=== PATIENT | female | born 1960 | race Caucasian/White ===

== ENCOUNTER → 2017-11-02 11:46 | Outpatient (CLI) | payer OTHER, SELFPAY ==
[2017-11-02 14:10] LABS: Erythrocyte Sedimentation Rate 14 mm/hr (0-30)
[2017-11-02 14:16] LABS: Absolute Neutrophil Count 4.7 X10^3/uL (2.0-7.7); Basophil# 0.03 X10^3/uL; Basophil% 0.4 % (0-1); Eosinophil# 0.11 X10^3/uL; Eosinophils% 1.5 % (0-5); Hematocrit 41.1 % (37-47); Hemoglobin 13.6 g/dl (12.0-15.0); Lymphocyte % 29.5 % (19-41); Mean Corp Hgb Conc 33.1 g/gl (32-36); Mean Corpuscular Hgb 28.2 pg (27.0-32.0); Mean Corpuscular Volume 85.3 fL (81-99); Mean Platelet Vol. 8.9 fl (6.2-12.0); Monocyte# 0.44 X10^3/uL; Monocyte% 5.9 % (0-10); Neutrophil # 4.67 X10^3/uL (2.7-7.7); Neutrophil % 62.6 % (47-70); Platelet Count 320 K/mm3 (150-450); RBC Distribution Width CV 13.3 % (11.6-14.6); RBC Distribution Width SD 40.8 fl (35.1-43.9); Red Blood Count 4.82 M/mm3 (4.2-5.4); White Blood Count 7.5 K/mm3 (4.4-11.0)
[2017-11-02 14:26] LABS: POSITIVE COUNT NO; POSITIVE DIFFERENTIAL NO; POSITIVE MORPHOLOGY NO
[2017-11-02 14:31] LABS: Vitamin B12 616 pg/mL (211-911); Vitamin D,25 Hydroxy 23.7 ng/mL (29.95-100.01)
[2017-11-02 15:08] LABS: ALB/GLOB Ratio 0.9 RATIO (0.9-2.4); AST(SGOT) 21 U/L (15-37); Alanine Aminotransfer ALT/SGPT 34 U/L (13-56); Albumin, Serum 3.8 g/dL (3.2-5.0); Alkaline Phosphatase 66 U/L (45-117); Anion Gap 11 (5-15); BUN 17 mg/dL (7-18); BUN/Creat Ratio 25.6 RATIO (10-20); CRP 7.33 mg/L (0.0-3.0); Calcium,Total 8.9 mg/dL (8.5-10.1); Chloride 102 mmol/L (98-107); Creatinine, Serum 0.66 mg/dL (0.55-1.02); EST Glomerular Filtration Rate 97 mL/min (>60); Est Glom Filt Rate - Afr Amer 118 mL/min (>60); Globulin 4.3 g/dL (2.2-4.2); Glucose 85 mg/dL (74-106); Potassium 4.1 mmol/L (3.5-5.1); Protein, Total 8.1 g/dL (6.4-8.2); Sodium Level 139 mmol/L (136-145); Thyroid Stim Hormone (TSH) 1.99 uIU/mL (0.358-3.74)
[2017-11-05 14:03] LABS: ANTINUCLEAR ANTIBODIES DIRECT Negative (Negative)
== END ==
PROVIDERS: Family Provider Internal Medicine; PCP Internal Medicine; Visit Provider Internal Medicine
DX: R53.83 Other fatigue (principal)
CPT/HCPCS: 36415; 80053; 82306; 82607; 82746; 84443; 85025; 85652; 86038; 86140; 87086; 87088

== ENCOUNTER → 2017-11-05 12:42 | Outpatient (CLI) | payer OTHER, SELFPAY ==
--- NOTE | 2017-11-05 12:55 | BI_ITS ---
MAMMOGRAPHY - BILATERAL SCREENING 3-D RODNEY SYNTHESIS REASON FOR EXAM: Female, 57 years old. Bilateral Screening 3-D tomosynthesis PERTINENT HISTORY: No significant family history. TECHNIQUE: 2-D mammograms and 3-D Rodney synthesis of the breast (s) were performed. CAD was performed. COMPARISON: October 19, 2016. FINDINGS: The breast composition is composed of scattered fibroglandular density. No dense spiculated masses or suspicious microcalcifications are identified. No architectural distortion is identified. There is no skin thickening or retraction. There has been no significant change since the prior study. BI/SCREENING MAMM (CAD), BILAT IMPRESSION: No mammographic signs of malignancy. Routine yearly mammograms recommended. ASSESSMENT CATEGORY: BIRADS Category 1: Negative. A letter regarding these results will be sent to the patient by the facility within 30 days. FOLLOW UP RECOMMENDATION: Yearly follow up mammogram recommended. (A) Approximately 10% of breast cancers are not detected by mammography. A normal mammogram should not delay biopsy of a clinically suspicious abnormality. Electronically Signed: Eric Dsouza MD at 15:48 EDT , Service support ,
--- NOTE | 2017-11-05 13:13 | US_ITS ---
STUDY: ULTRASOUND OF THE FEMALE PELVIS - COMPLETE REASON FOR EXAM: Female, 57 years old. Right lower quadrant pain LMP: Postmenopausal TECHNIQUE: Transabdominal and Transvaginal TECHNICAL QUALITY: Adequate. COMPARISON: December 20, 2016 CT scan pelvis FINDINGS: The uterus is retroverted and is in a midline position. The uterus measures 5.3 x 4.2 x 3.2 cm. Normal uterine cervix. The endometrium measures 1.3 mm, on sagittal view at the fundus however allowing for technique the transverse view shows that an echogenicity measuring 0.5 x 0.8 cm seen on image #23 of the transverse views. In the left and midline lower aspect of the uterus there is a well-circumscribed 1.4 x 1.2 cm fibroid which is well seen on the prior study CT scan. I.U.D. - The patient does not have an I.U.D. The right ovary is not visualized. The left ovary is visualized. The left ovary measures 1.2 x 1.1 x 1.0 cm. There is no left ovarian cyst or ovarian mass. There is no visualized left adnexal mass or complex lesion. There is normal arterial and normal venous vascularity. There is no fluid in the cul-de-sac. The pre void volume of the bladder was 355 ml. US/Pelvic (Non ) IMPRESSION: Status post left oophorectomy. Question hyperechoic mass within the uterine lumen in the endometrium measuring 0.5 x 0.8 cm. This may represent an possible fibroid, endometrial polyp or focal endometrial thickening. Small left of midline exophytic fibroid. Recommend close interval follow-up and/or consideration for MRI for further evaluation. Electronically Signed: Dorothy Harvey MD at 1:28 EDT Tel , Service support ,
--- NOTE | 2017-11-05 13:25 | US_ITS ---
STUDY: ULTRASOUND OF THE FEMALE PELVIS - COMPLETE REASON FOR EXAM: Female, 57 years old. Right lower quadrant pain LMP: Postmenopausal TECHNIQUE: Transabdominal and Transvaginal TECHNICAL QUALITY: Adequate. COMPARISON: December 20, 2016 CT scan pelvis FINDINGS: The uterus is retroverted and is in a midline position. The uterus measures 5.3 x 4.2 x 3.2 cm. Normal uterine cervix. The endometrium measures 1.3 mm, on sagittal view at the fundus however allowing for technique the transverse view shows that an echogenicity measuring 0.5 x 0.8 cm seen on image #23 of the transverse views. In the left and midline lower aspect of the uterus there is a well-circumscribed 1.4 x 1.2 cm fibroid which is well seen on the prior study CT scan. I.U.D. - The patient does not have an I.U.D. The right ovary is not visualized. The left ovary is visualized. The left ovary measures 1.2 x 1.1 x 1.0 cm. There is no left ovarian cyst or ovarian mass. There is no visualized left adnexal mass or complex lesion. There is normal arterial and normal venous vascularity. There is no fluid in the cul-de-sac. The pre void volume of the bladder was 355 ml. US/Transvaginal Non- IMPRESSION: Status post left oophorectomy. Question hyperechoic mass within the uterine lumen in the endometrium measuring 0.5 x 0.8 cm. This may represent an possible fibroid, endometrial polyp or focal endometrial thickening. Small left of midline exophytic fibroid. Recommend close interval follow-up and/or consideration for MRI for further evaluation. Electronically Signed: Dorothy Harvey MD at 1:28 EDT Tel , Service support ,
== END ==
PROVIDERS: Family Provider Internal Medicine; PCP Internal Medicine; Visit Provider Obstetrics & Gynecology
DX: Z12.31 Encounter for screening mammogram for malignant neoplasm of breast (principal); R10.31 Right lower quadrant pain
CPT/HCPCS: 76830; 76856; 77063; 77067; 93976

== ENCOUNTER → 2017-11-20 18:37 | Outpatient (CLI) | payer OTHER, SELFPAY ==
[2017-11-24 11:36] LABS: HPV Reflexed? NOT INDICATED
== END ==
PROVIDERS: Family Provider Internal Medicine; PCP Internal Medicine; Visit Provider Obstetrics & Gynecology
DX: Z12.4 Encounter for screening for malignant neoplasm of cervix (principal)
CPT/HCPCS: 88175; G0145

== ENCOUNTER → 2017-11-21 11:03 | Outpatient (CLI) | payer OTHER, SELFPAY ==
--- NOTE | 2017-11-21 11:06 | MRI_ITS ---
STUDY: MR PELVIS WITH T WITHOUT CONTRAST REASON FOR EXAM: Female, 57 years old. Right lower quadrant abdominal pain for 3 years. Patient has uterine fibroids. TECHNIQUE: Standardized fat and water weighted pulse sequences were obtained in all 3 orthogonal planes, pre-and post contrast administration. 10 ml of Gadavist contrast material was administered intravenously for the contrast portion of the examination. Multiple images are limited by patient motion. COMPARISON: Pelvic ultrasound dated November 05, 2017. FINDINGS: Normal urinary bladder. Normal visualized small intestine. Appears to be abnormal thickening of the baez of the colon which measure up to 5.6 mm. The uterus is deviated towards the left. There is a focus of abnormally decreased T2 signal within the left lateral uterine myometrium measuring approximately 6.5 mm. This probably represents a small leiomyoma. There are multiple areas of abnormal T2 hyperintensity within the subserosal uterine myometrium that may represent small leiomyomas. These measure less than a centimeter in size. There is a nabothian cyst. The junctional zone measures approximately 6.5 mm in thickness. Neither ovary is visualized. There is no pelvic fluid. There is no pelvic mass lesion or lymphadenopathy. Normal visualized pelvic arteries. There are degenerative changes at L5-S1. Normal abdominal wall. MRI/Pelvis W/WO Contrast IMPRESSION: 1. Atrophic uterus with multiple small nodules possibly representing leiomyomas. 2. Nonvisualization of either ovary. 3. Questionable thickening of the baez of sigmoid colon possibly related to nondistention and/or chronic inflammation. Electronically Signed: Candice Montoya MD at 8:54 EDT , Service support ,
== END ==
PROVIDERS: Family Provider Internal Medicine; PCP Internal Medicine; Visit Provider Internal Medicine
DX: N85.8 Other specified noninflammatory disorders of uterus (principal)
CPT/HCPCS: 72197; A9585

== ENCOUNTER → 2019-05-14 | Outpatient (CLI) | payer OTHER, SELFPAY ==
[2018-01-23 07:40] VITALS: BMI 34.7
[2019-05-14 17:49] LABS: Absolute Lymphocyte Count 2.31 X10^3/uL (0.83-4.51); Absolute Neutrophil Count 3.2 X10^3/uL (2.0-7.7); Basophil# 0.04 X10^3/uL; Basophil% 0.7 % (0-1); Eosinophil# 0.05 X10^3/uL; Eosinophils% 0.8 % (0-5); Hematocrit 41.3 % (37-47); Hemoglobin 13.7 g/dL (12.0-15.0); Lymphocyte # 2.31 X10^3/ul (4.0); Lymphocyte % 37.7 % (19-41); Mean Corp Hgb Conc 33.2 g/dL (32-36); Mean Corpuscular Hgb 28.8 pg (27.0-32.0); Mean Corpuscular Volume 86.9 fL (81-99); Monocyte# 0.52 X10^3/uL; Monocyte% 8.5 % (0-10); NRBC Flagged by Analyzer 0 % (0-5); Neutrophil # 3.18 X10^3/uL (2.7-7.7); Platelet Count 244 K/mm3 (150-450); RBC Distribution Width CV 12.6 % (11.6-14.6); RBC Distribution Width SD 40.1 fl (35.1-43.9); Red Blood Count 4.75 M/mm3 (4.2-5.4); White Blood Count 6.1 K/mm3 (4.4-11.0)
[2019-05-14 18:10] LABS: AST(SGOT) 32 U/L (15-37); Alanine Aminotransfer ALT/SGPT 59 U/L (13-56); Alkaline Phosphatase 54 U/L (45-117); Anion Gap 8 (5-15); BUN 9 mg/dL (7-18); BUN/Creat Ratio 13.8 RATIO (10-20); Calcium,Total 9.1 mg/dL (8.5-10.1); Chloride 105 mmol/L (98-107); Creatinine, Serum 0.65 mg/dL (0.55-1.02); EST Glomerular Filtration Rate 99 mL/min (>60); Est Glom Filt Rate - Afr Amer 119 mL/min (>60); Globulin 3.9 g/dL (2.2-4.2); Glucose 86 mg/dL (74-106); Potassium 3.9 mmol/L (3.5-5.1); Protein, Total 7.9 g/dL (6.4-8.2); Sodium Level 139 mmol/L (136-145)
[2019-05-16 12:30] LABS: Thyroid Peroxidase AB 6 IU/mL (0-34)
== END | disposition home or self-care (01) ==
PROVIDERS: Family Provider Internal Medicine; PCP Internal Medicine; Referring Provider Physician Assistant; Visit Provider Physician Assistant
DX: R20.8 Other disturbances of skin sensation (principal); L82.1 Other seborrheic keratosis
CPT/HCPCS: 36415; 80053; 85025; 86038; 86376

== ENCOUNTER → 2020-03-18 | Outpatient (CLI) | payer OTHER, SELFPAY ==
[2018-01-23 07:40] VITALS: BMI 34.7
[2020-03-24 19:09] LABS: HPV APTIMA, High Risk Negative (Negative)
== END | disposition home or self-care (01) ==
LOC: LABSPEC 11:57
PROVIDERS: PCP Internal Medicine; Visit Provider Obstetrics & Gynecology
DX: Z12.4 Encounter for screening for malignant neoplasm of cervix (principal)
CPT/HCPCS: 87624; 88175; G0145

== ENCOUNTER → 2020-04-02 | Outpatient (CLI) | payer OTHER, SELFPAY ==
--- NOTE | 2020-04-02 15:20 | BI_ITS ---
MAMMOGRAPHY - BILATERAL SCREENING REASON FOR EXAM: Female, 59 years old. Routine annual screening examination. PERTINENT HISTORY: Non-contributory. History of remote right excisional breast biopsy. TECHNIQUE: Digital bilateral breast rodney (3D mammographic acquisition) in the CC and MLO projections. 2-D mediolateral oblique (MLO) and craniocaudad (CC) views of both breasts were obtained. CAD: Full Field Digital Mammography with Computer Added Detection was performed. COMPARISON: Comparison is made with prior study dated 11/05/2017 and 10/19/2016. FINDINGS: Breast Composition: There are scattered areas of fibroglandular density. There are no dominant masses or suspicious calcifications. Stable benign-appearing bilateral axillary lymph nodes. No other significant abnormalities are identified. There has been no significant change since the prior study. BI/SCREEN MAMM (CAD) W/RODNEY BILAT IMPRESSION: Stable bilateral screening mammogram. Yearly follow-up mammogram recommended. (A) ASSESSMENT CATEGORY: BIRADS Category 2: Benign. A letter regarding these results will be sent to the patient by the facility within 30 days. Approximately 10% of breast cancers are not detected by mammography. A normal mammogram should not delay biopsy of a clinically suspicious abnormality. [id number] Electronically Signed: Jarrett Bey, at 8:24 EDT , Service support ,
== END | disposition home or self-care (01) ==
LOC: OPBI 15:10
PROVIDERS: PCP Internal Medicine; Referring Provider Obstetrics & Gynecology; Visit Provider Obstetrics & Gynecology
DX: Z12.31 Encounter for screening mammogram for malignant neoplasm of breast (principal)
CPT/HCPCS: 77063; 77067

== ENCOUNTER → 2020-04-14 | Outpatient (CLI) | payer OTHER, SELFPAY ==
[2020-04-14 09:40] LABS: Bacteria 0 SEEN /hpf (None Seen); Mucous, Urine 0 SEEN /hpf (<or=2+); Red Blood Cells-Urine 0 SEEN /hpf (0-5); Squamous Epithelial Cells - UA 0 SEEN /hpf (5-10); White Blood Cells 0 SEEN /hpf (0-5)
[2020-04-14 09:52] LABS: Color, Urine Yellow (Yellow); Glucose, Dipstick Normal (Normal); Ketone-Dipstick Negative (Negative); Leukocyte Esterase-Dipstick Negative /ul (Negative); Nitrite-Dipstick Negative (Negative); Occult Blood-Urine Negative /ul (Negative); Protein-Dipstick Negative (Negative); Urine Bilirubin Dipstick Negative (Negative); Urine Clarity Clear (Clear); Urine Urobilinogen Normal (Normal)
--- NOTE | 2020-04-14 09:57 | CT_ITS ---
STUDY: CT ABDOMEN AND PELVIS WITHOUT CONTRAST REASON FOR EXAM: Female, 59 years old. rlq pain x years. hx of hysterectomy RADIATION DOSAGE (If Supplied By Facility): CTDIvol = ( 18.61 ) mGy, DLP = ( 906.55 ) mGycm TECHNIQUE: Transaxial images were obtained from the dome of the diaphragm to the symphysis pubis without oral contrast, and without intravenous contrast. Sagittal and coronal images were reconstructed. Individualized dose optimization techniques were used for this CT. COMPARISON: Comparison is made with prior study dated 12/20/2016. FINDINGS: The visualized lung bases are unremarkable. The visualized portions of the heart are within normal limits. Normal liver. Normal gallbladder and extrahepatic biliary system. There are benign calcified granulomata of the spleen. Normal pancreas. Normal bilateral adrenal glands. Normal right kidney. Normal left kidney. Normal visualized stomach. Normal small intestine. Normal colon. The appendix is visualized and appears normal. There is scattered atherosclerotic calcification of the abdominal aorta, without a demonstrated aneurysm. 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 Normal inferior vena cava. Normal retroperitoneum. Normal urinary bladder. There is absence of the uterus consistent with a prior hysterectomy. Calcified phleboliths are seen in the pelvis. Normal abdominal wall. There are degenerative changes of the visualized lumbar spine. CT/Abdomen/Pelvis without Cont IMPRESSION: No acute amount is seen. 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 Electronically Signed: Jarrett Bey, at 10:46 EDT , Service support ,
[2020-04-14 09:58] LABS: Erythrocyte Sedimentation Rate 27 mm/hr (0-30)
[2020-04-14 10:01] LABS: Absolute Lymphocyte Count 1.56 X10^3/uL (0.83-4.51); Absolute Neutrophil Count 2.8 X10^3/uL (2.0-7.7); Basophil# 0.05 X10^3/uL; Eosinophil# 0.06 X10^3/uL; Eosinophils% 1.2 % (0-5); Hematocrit 39.9 % (37-47); Hemoglobin 13.3 g/dL (12.0-15.0); Lymphocyte # 1.56 X10^3/ul (4.0); Lymphocyte % 31.1 % (19-41); Mean Corp Hgb Conc 33.3 g/dL (32-36); Mean Corpuscular Hgb 28.6 pg (27.0-32.0); Mean Corpuscular Volume 85.8 fL (81-99); Mean Platelet Vol. 8.5 fl (6.2-12.0); Monocyte# 0.49 X10^3/uL; Monocyte% 9.8 % (0-10); NRBC Flagged by Analyzer 0 % (0-5); Neutrophil # 2.84 X10^3/uL (2.7-7.7); Neutrophil % 56.7 % (47-70); Platelet Count 236 K/mm3 (150-450); RBC Distribution Width CV 12.8 % (11.6-14.6); RBC Distribution Width SD 39.8 fl (35.1-43.9); Red Blood Count 4.65 M/mm3 (4.2-5.4)
[2020-04-14 10:11] LABS: Anion Gap 5 (5-15); BUN 12 mg/dL (7-18); BUN/Creat Ratio 16.8 RATIO (10-20); CRP < 2.90 mg/L (0.0-3.0); Calcium,Total 9.3 mg/dL (8.5-10.1); Chloride 104 mmol/L (98-107); Cholesterol 169 mg/dL (200); Creatinine, Serum 0.71 mg/dL (0.55-1.02); EST Glomerular Filtration Rate 89 mL/min (>60); Est Glom Filt Rate - Afr Amer 107 mL/min (>60); Glucose 109 mg/dL (74-106); High Density Lipoprotein 51 mg/dL; Potassium 4.2 mmol/L (3.5-5.1); Sodium Level 136 mmol/L (136-145); Triglycerides 120 mg/dL; Very Low Density Lipoprotein 24 mg/dL (5-40)
[2020-04-14 10:15] LABS: Vitamin D,25 Hydroxy 35.4 ng/mL
[2020-04-14 10:26] LABS: Microalbumin,Random Urine < 5.0 mg/L (NO RANGE EST.)
== END | disposition home or self-care (01) ==
LOC: CT 09:32
PROVIDERS: PCP Internal Medicine; Referring Provider Internal Medicine; Visit Provider Internal Medicine
DX: E55.9 Vitamin D deficiency, unspecified (principal); I10 Essential (primary) hypertension; R10.11 Right upper quadrant pain; R10.32 Left lower quadrant pain
CPT/HCPCS: 36415; 74176; 80048; 80061; 81001; 82043; 82306; 82570; 85025; 85652; 86140

== ENCOUNTER → 2020-04-23 | Outpatient (CLI) | payer OTHER, SELFPAY ==
--- NOTE | 2020-04-23 10:59 | NM_ITS ---
CLINICAL: 59-year-old female with reported history of right upper quadrant abdominal pain. RADIONUCLIDE HEPATOBILIARY SCINTIGRAPHY COMPARISON: Previous CCK hepatobiliary scintigraphy study dated 11/20/2016 FINDINGS: Following the intravenous administration of 5.6 mCi of 99m Tc Mebrofenin, hepatobiliary images reveal: 1. Relatively prompt and homogeneous radiopharmaceutical concentration is noted by a normal sized liver. No parenchymal defects are identified. 2. Gallbladder activity is identified at 15 minutes post radiopharmaceutical administration. 3. Small intestinal tract is observed at 30 minutes following tracer injection. 4. Washout of the radiopharmaceutical by the hepatic parenchyma appears qualitatively normal. Cholecystokinin (0.02 ug/kg) was administered intravenously over a 30-minute period. The post CCK gallbladder ejection fraction calculated at 20 minutes following Cholecystokinin administration was noted to be 91.0 % (normal greater than 35%) compared to 92% defined on the examination dated 11/21/2019. During 30 minutes of post CCK imaging, there is no scintigraphic evidence of reflux of the radiotracer into the common hepatic duct or refilling of the gallbladder. 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 NM/Hepatobilliary Img w/Pharm Int IMPRESSION: 1. A gallbladder ejection fraction calculated to be greater than 35% following the administration of Cholecystokinin makes the probability of functional hepatobiliary disease (gallbladder and/or sphincter of Oddi dyskinesia) and/or organic hepatobiliary disease (chronic acalculous cholecystitis and/or cystic duct syndrome) to be low. (Lenora Sharp et al, Journal of Nuclear Medicine 32:1695, 1990). 2. There is scintigraphic evidence of post CCK duodenal-gastric reflux. (Foreign et al, Nucl Med Jodi Rosa Press pg. 35, 1980). Electronically Signed: Arden Trejo DO at 22:38 EDT Tel , Service support ,
== END | disposition home or self-care (01) ==
LOC: NM 10:57
PROVIDERS: PCP Internal Medicine; Referring Provider Internal Medicine; Visit Provider Internal Medicine
DX: R10.11 Right upper quadrant pain (principal)
CPT/HCPCS: 78227; A9537; J2805

== ENCOUNTER → 2020-07-08 | Outpatient (CLI) | payer OTHER, SELFPAY | END | disposition home or self-care (01) | LOC: LABSPEC 10:11 | PROVIDERS: PCP Internal Medicine; Referring Provider Internal Medicine Gastroenterology; Visit Provider Internal Medicine Gastroenterology | DX: Z11.59 Encounter for screening for other viral diseases (principal) | CPT/HCPCS: 87635; C9803; U0003 ==

== ENCOUNTER → 2020-07-14 15:52 | Outpatient (CLI) | payer OTHER, SELFPAY ==
[2018-01-23 07:40] VITALS: BMI 34.7
[2020-07-14 18:14] LABS: AST(SGOT) 31 U/L (15-37); Alanine Aminotransfer ALT/SGPT 66 U/L (13-56); Albumin, Serum 3.9 g/dL (3.2-5.0); Alkaline Phosphatase 63 U/L (45-117); Bilirubin, Direct 0.08 mg/dL (0.00-0.30); Globulin 3.9 g/dL (2.2-4.2); Protein, Total 7.8 g/dL (6.4-8.2)
== END ==
PROVIDERS: PCP Internal Medicine; Referring Provider Internal Medicine; Visit Provider Internal Medicine
DX: R14.0 Abdominal distension (gaseous) (principal)
CPT/HCPCS: 36415; 80076

== ENCOUNTER → 2021-04-19 16:00 | Outpatient (CLI) | payer OTHER, SELFPAY ==
[2021-04-22 21:12] LABS: HPV APTIMA, High Risk Negative (Negative)
== END ==
PROVIDERS: PCP Internal Medicine; Visit Provider Obstetrics & Gynecology
DX: Z12.4 Encounter for screening for malignant neoplasm of cervix (principal)
CPT/HCPCS: 87624; 88175; G0145

== ENCOUNTER → 2021-04-20 15:21 | Outpatient (CLI) | payer OTHER, SELFPAY ==
--- NOTE | 2021-04-20 15:23 | BI_ITS ---
MAMMOGRAPHY - BILATERAL SCREENING 3-D TOMOSYNTHESIS REASON FOR EXAM: Female, 60 years old. SCREENING PERTINENT HISTORY: No significant family history. TECHNIQUE: 2-D mammograms and 3-D Tomosynthesis of the breast (s) were performed. CAD was performed. COMPARISON: 04/02/2020 FINDINGS: The breast composition is composed of scattered fibroglandular density. Scattered benign calcifications are seen. No dense spiculated masses or suspicious microcalcifications are identified. No architectural distortion is identified. There is no skin thickening or retraction. There has been no significant change since the prior study. BI/SCRN MAMM (CAD)W/RODNEY BILAT IMPRESSION: No mammographic signs of malignancy. Routine yearly mammograms recommended. ASSESSMENT CATEGORY: BIRADS Category 1: Negative. A letter regarding these results will be sent to the patient by the facility within 30 days. FOLLOW UP RECOMMENDATION: Yearly follow up mammogram recommended. (A) Approximately 10% of breast cancers are not detected by mammography. A normal mammogram should not delay biopsy of a clinically suspicious abnormality. Electronically Signed: Arden Joe MD at 17:49 EDT Tel , Service support ,
== END ==
PROVIDERS: PCP Internal Medicine; Referring Provider Obstetrics & Gynecology; Visit Provider Obstetrics & Gynecology
DX: Z12.31 Encounter for screening mammogram for malignant neoplasm of breast (principal)
CPT/HCPCS: 77063; 77067

== ENCOUNTER 2021-04-25 11:37 | Emergency (ER) | payer OTHER, SELFPAY ==
[2021-04-25 11:38] VITALS: BP 164/98; PULSE 94; RESP 18; TEMP 36.6; O2SAT 96; BMI 35.6
--- NOTE | 2021-04-25 12:03 | CT_ITS ---
STUDY: CT ABDOMEN AND PELVIS WITH CONTRAST REASON FOR EXAM: Female, 60 years old. Pain -- IV PO Contrast. 3 day history of abdominal pain. RADIATION DOSAGE (If Supplied By Facility): CTDIvol = ( 14.9 ) mGy, DLP = ( 1119.73 ) mGycm TECHNIQUE: Transaxial images were obtained from the dome of the diaphragm to the symphysis pubis with oral contrast. Oral and amp; IV Gastrografin and amp; 100mL Isovue-370 was administered. Sagittal and coronal images were reconstructed. Individualized dose optimization techniques were used for this CT. COMPARISON: Comparison is made with prior examination of 04/14/2020. FINDINGS: The visualized lung bases are unremarkable. The visualized portions of the heart are within normal limits. There is decreased attenuation of the liver consistent with steatosis. Normal gallbladder and extrahepatic biliary system. Normal spleen. Normal pancreas. Normal bilateral adrenal glands. Normal right kidney. Normal left kidney. Normal visualized stomach. Normal small intestine. There are scattered colonic diverticula consistent with diverticulosis. The appendix is visualized and appears normal. There is diffuse atherosclerotic calcification of the abdominal aorta, without a demonstrated aneurysm. Stable 7.2 mm calcified aneurysm of the intrarenal branch of the right renal artery. Normal inferior vena cava. Normal retroperitoneum. Normal urinary bladder. The patient claims to have prior hysterectomy although there appears to be a uterus with a bulbous fundal portion suggestive of fibroid. Multiple calcified phleboliths. Normal abdominal wall. There are degenerative changes of the visualized lumbar spine. CT/Abdomen/Pelvis WITH Contrast IMPRESSION: Stable examination. Electronically Signed: Jarrett Bey MD at 14:36 EDT , Service support ,
--- NOTE | 2021-04-25 12:04 | EX.ED.DYSGE1 ---
HPI History of Present Illness Chief Complaint: Abd Pain Informant: patient Onset/Context/Timing Onset: Days (3 days) Context: Gradual Onset Current Severity: Mild Maximum Severity: Moderate Narrative Narrative: Patient presents with 3-day history of abdominal pain. She points to the mid abdomen and describing her area of pain. She initially thought she may be UTI so she went to urgent care. Urinalysis there was negative and she was sent to the ER. She denies fever. No vomiting but has had some mild nausea. No diarrhea. PFSH PFSH Medical History BPPV (benign paroxysmal positional vertigo) Chronic back pain Essential (primary) hypertension Fatty liver GERD (gastroesophageal reflux disease) Hemorrhoids IBS (irritable bowel syndrome) Obesity (BMI 30-39.9) Renal artery aneurysm Home Medications lisinopril 20 mg tablet 20 mg PO DAILY #90 tab 01/05/21 [Rx Last Taken Unknown] pantoprazole 40 mg tablet,delayed release 40 mg PO DAILY tab 01/05/21 [History Last Taken Unknown] dicyclomine 20 mg PO BID PRN #14 tab 04/25/21 [Rx Last Taken Unknown] hydrocodone-acetaminophen 1 tab PO Q6H PRN 3 Days #10 tab 04/25/21 [Rx Last Taken Unknown] Allergy/AdvReac Type Severity Reaction Status Date / Time codeine Allergy Rash Verified 04/25/21 11:38 Family History Father CAD (coronary artery disease) Diabetes Hypertension Kidney disease Cancer lung Surgical History H/O arthroscopic knee surgery H/O breast biopsy H/O oophorectomy History of colonoscopy History of endometrial ablation Social History Smoking Status: Never smoker alcohol intake: current substance use type: does not use caffeine: Yes ROS ROS ED Constitutional Constitutional ED: Denies fever(s) Eyes Eyes: Denies change in vision ENT ENT ED: Denies sore throat Cardiovascular Cardiovascular: Denies chest pain Respiratory/Chest Respiratory/Chest: Denies cough or dyspnea Gastrointestinal Gastrointestinal: Reports abdominal pain and nausea; Denies diarrhea or vomiting Genitourinary Genitourinary ED: Denies dysuria or urinary frequency Musculoskeletal Musculoskeletal: Denies back pain Integumentary Denies rash Neurologic Neurologic: Denies headache(s) or weakness Allergic/Immunologic Allergic/Immunologic ED: Denies urticaria EXAM Physical Exam Const Vital Signs: 04/25/21 11:38 04/25/21 14:00 Temperature 97.9 F Temperature Source Temporal Pulse Rate 94 Respiratory Rate 18 16 Blood Pressure 164/98 H Blood Pressure Mean 120 Pulse Ox 96 Oxygen Delivery Method Room Air Positive well nourished and well developed General Appearance ED: well developed Chest Wall inspection of chest normal Resp normal respiratory effort and clear to auscultation bilaterally Cardio regular rate and regular rhythm GI Auscultation: hypoactive bowel sounds Palpation: soft and tender other (Mild diffuse tenderness to palpation. No guarding or rebound.) Extremity normal to inspection Neuro oriented x3 Sensorium / Orientation: alert Psych mental status grossly normal Skin no rashes or lesions noted MDM MDM MDM Narrative Medical decision making narrative: Lab work and CT scan with p.o. and IV contrast obtained. Urinalysis from the urgent care was reviewed and normal. Lab Data Attestation: I reviewed the patient's lab results. Labs: Laboratory Results - last 24 hr 04/25/21 04/25/21 11:56 11:56 WBC 8.6 RBC 4.94 Hgb 14.1 Hct 42.1 MCV 85.2 MCH 28.5 MCHC 33.5 RDW Std Deviation 40.2 RDW Coeff of [place] 13.0 Plt Count 250 MPV 8.9 Immature Gran % (Auto) 0.200 Neut % (Auto) 75.7 H Lymph % (Auto) 16.4 L [place] % (Auto) 6.9 Eos % (Auto) 0.3 Baso % (Auto) 0.5 Absolute Neuts (auto) 6.5 Absolute Lymphs (auto) 1.41 Nucleated RBC % 0 Sodium 136 Potassium 3.9 Chloride 105 Carbon Dioxide 24.0 Anion Gap 7 BUN 9 Creatinine 0.68 Estim Creat Clear Calc 75.97 Est GFR (MDRD) Af Amer 114 Est GFR (MDRD) Non-Af 94 BUN/Creatinine Ratio 13.3 Glucose 113 H Calcium 9.4 Total Bilirubin 0.60 Direct Bilirubin 0.18 AST 29 ALT 62 H Alkaline Phosphatase 63 Total Protein 8.4 H Albumin 3.9 Globulin 4.5 H Lipase 251 Radiography Diagnostic Testing: Clinical Impression(s) from Imaging Studies Abdomen/Pelvis CT 04/25/21 12:03 IMPRESSION: Stable examination. Electronically Signed: Jarrett Bey MD at 14:36 EDT , Service support , Treatment and Re-Evaluation Comments:: Patient's lab work is unremarkable. CT scan is read as normal. She has a stable aneurysm of the right renal artery that is unchanged. Test results discussed with the patient. I did recommend follow-up with her GI doctor, Dr. Duarte. Patient will be given prescriptions for Bentyl as well as a few Flournoy for breakthrough pain. Return instructions provided. Discharge Plan Triage Chief Complaint: Abd Pain ED Provider: Evelyn Baez Dx/Rx/DC Orders Clinical Impression: Abdominal pain Instructions: ED Abdominal Pain Unkn Cause Fem Prescriptions: New dicyclomine 20 mg tablet 20 mg PO BID PRN (Reason: abdominal pain) Qty: 14 RF: 0 hydrocodone-acetaminophen 5-325 mg tablet 1 tab PO Q6H PRN (Reason: pain) 3 Days Qty: 10 RF: 0 No Action pantoprazole 40 mg tablet,delayed release (DR/EC) 40 mg PO DAILY RF: 0 lisinopril 20 mg tablet 20 mg PO DAILY Qty: 90 RF: 5 Primary Care Provider: Lisa Yoder Referrals: Lisa Yoder DO [Primary Care Provider] - Js Duarte MD [NON-STAFF] - As Needed Disposition Disposition: Home, Self Care
[2021-04-25 12:16] LABS: Absolute Lymphocyte Count 1.41 X10^3/uL (0.83-4.51); Absolute Neutrophil Count 6.5 X10^3/uL (2.0-7.7); Basophil# 0.04 X10^3/uL; Basophil% 0.5 % (0-1); Eosinophil# 0.03 X10^3/uL; Eosinophils% 0.3 % (0-5); Hematocrit 42.1 % (37-47); Hemoglobin 14.1 g/dL (12.0-15.0); Lymphocyte # 1.41 X10^3/ul (0.83-4.51); Lymphocyte % 16.4 % (19-41); Mean Corp Hgb Conc 33.5 g/dL (32-36); Mean Corpuscular Hgb 28.5 pg (27.0-32.0); Mean Corpuscular Volume 85.2 fL (81-99); Mean Platelet Vol. 8.9 fl (6.2-12.0); Monocyte# 0.59 X10^3/uL; Monocyte% 6.9 % (0-10); NRBC Flagged by Analyzer 0 % (0-5); Neutrophil # 6.52 X10^3/uL (2.7-7.7); Neutrophil % 75.7 % (47-70); Platelet Count 250 K/mm3 (150-450); RBC Distribution Width SD 40.2 fl (35.1-43.9); Red Blood Count 4.94 M/mm3 (4.2-5.4); White Blood Count 8.6 K/mm3 (4.4-11.0)
[2021-04-25 12:27] LABS: AST(SGOT) 29 U/L (15-37); Alanine Aminotransfer ALT/SGPT 62 U/L (13-56); Albumin, Serum 3.9 g/dL (3.2-5.0); Alkaline Phosphatase 63 U/L (45-117); Anion Gap 7 (5-15); BUN 9 mg/dL (7-18); BUN/Creat Ratio 13.3 RATIO (10-20); Bilirubin, Direct 0.18 mg/dL (0.00-0.30); Calcium,Total 9.4 mg/dL (8.5-10.1); Chloride 105 mmol/L (98-107); Creatinine, Serum 0.68 mg/dL (0.55-1.02); EST Glomerular Filtration Rate 94 mL/min (>60); Est Glom Filt Rate - Afr Amer 114 mL/min (>60); Estimated Creatinine Clearance 75.97 ml/min; Globulin 4.5 g/dL (2.2-4.2); Glucose 113 mg/dL (74-106); Lipase 251 U/L (73-393); Potassium 3.9 mmol/L (3.5-5.1); Protein, Total 8.4 g/dL (6.4-8.2); Sodium Level 136 mmol/L (136-145)
[2021-04-25 14:00] VITALS: RESP 16
== END 2021-04-25 15:04 | disposition home or self-care (01) ==
PROVIDERS: Emergency Provider Emergency Medicine; PCP Internal Medicine
DX: R10.84 Generalized abdominal pain (principal); I72.2 Aneurysm of renal artery; I10 Essential (primary) hypertension; K21.9 Gastro-esophageal reflux disease without esophagitis; E66.9 Obesity, unspecified; Z79.899 Other long term (current) drug therapy
CPT/HCPCS: 74177; 80048; 80076; 83690; 85025; 99283; Q9967; A4216

== ENCOUNTER → 2021-04-27 10:28 | Outpatient (CLI) | payer OTHER, SELFPAY ==
--- NOTE | 2021-04-27 10:33 | STEWCON_ITS ---
Reason For Study: Chest Pain Stress Results Protocol: Rambo Protocol WITH DEFINITY Maximum Predicted HR: 160 bpm Target HR: 136 bpm % Maximum Predicted HR: 94 % DurationHeart Rate Stage (mm:ss) (bpm) BP Comment Baseline 75 126/70No Chest Pain: 4 ML Diluted Definity Rambo Protocol Stage I 3:00 120 130/72No Chest Pain Rambo Protocol Stage II 3:00 131 146/70No Chest Pain; Mild Dyspnea Rambo Protocoll Stage III 1:00 151 / No Chest Pain; Mod Dyspnea Recovery 88 130/72No Chest Pain Stress Duration: 7:00 mm:ss Maximum Stress HR: 151 bpm METS: 10 Baseline Echocardiogram Findings Stress Echo Wall motion Data Resting WM Intermediate WM Stress WM ECHO/Stress Test Echo W/Contrast Interpretation Summary Exercise stress echo. 60-year-old lady with a history of hypertension. Stress protocol: Resting EKG demonstrates normal sinus rhythm with a rate of 77 bpm resting bloo d pressure is 126/70 mmHg. The patient exercised according to regular Rambo protocol for total durat ion of 7 minutes. The maximum heart rate attained was 153 bpm which was 95% of max impact her heart r ate the maximum workload attained was 10 metabolic equivalents. At rest there were no ST or T w ave changes noted to suggest ischemia and at peak exercise upsloping ST changes were noted with did not meet the criteria for ischemia. No clinical angina was noted. The peak blood pressure was 146/70 mmHg. Stress echocardiogram. The stress echocardiographic images demonstrated preserv ed ejection fraction at rest estimated at 60% with Definity enhancement. With the stress the peak ej ection fraction was approximately 75% with no wall motion abnormalities noted. Conclusion: Normal exercise stress echo with no evidence of ischemia at a high workload. Excellent functional capacity. Good blood pressure response to exercise. Ordering Physician: Evy Arevalo Referring Physician: Yair Colvin Performed By: Le Rawls, MALCOM, RVT
== END ==
PROVIDERS: PCP Internal Medicine; Referring Provider Nurse Practitioner Gerontology; Visit Provider Nurse Practitioner Gerontology
DX: R07.9 Chest pain, unspecified (principal); I10 Essential (primary) hypertension
CPT/HCPCS: 93017; 93350; Q9957; A4216; C8928; J3490

== ENCOUNTER → 2022-01-07 | Outpatient (CLI) | payer OTHER, SELFPAY ==
[2022-01-07 07:10] LABS: Bacteria 0 SEEN /hpf (None Seen); Mucous, Urine 0 SEEN /hpf (<or=2+); Red Blood Cells-Urine 0 SEEN /hpf (0-5); White Blood Cells 0 SEEN /hpf (0-5)
[2022-01-07 07:34] LABS: Color, Urine Yellow (Yellow); Glucose, Dipstick Normal (Normal); Ketone-Dipstick Negative (Negative); Leukocyte Esterase-Dipstick 25 /ul (Negative); Nitrite-Dipstick Negative (Negative); Occult Blood-Urine Negative /ul (Negative); Protein-Dipstick Negative (Negative); Urine Bilirubin Dipstick Negative (Negative); Urine Clarity Clear (Clear); Urine Urobilinogen Normal (Normal)
[2022-01-07 07:43] LABS: Absolute Lymphocyte Count 1.68 X10^3/uL (0.83-4.51); Absolute Neutrophil Count 3.2 X10^3/uL (2.0-7.7); Basophil# 0.05 X10^3/uL; Basophil% 0.9 % (0-1); Eosinophil# 0.09 X10^3/uL; Eosinophils% 1.6 % (0-5); Hematocrit 39.7 % (37-47); Hemoglobin 12.8 g/dL (12.0-15.0); Lymphocyte # 1.68 X10^3/ul (0.83-4.51); Lymphocyte % 30.4 % (19-41); Mean Corp Hgb Conc 32.2 g/dL (32-36); Mean Corpuscular Hgb 28.7 pg (27.0-32.0); Mean Platelet Vol. 8.8 fl (6.2-12.0); Monocyte# 0.53 X10^3/uL; Monocyte% 9.6 % (0-10); NRBC Flagged by Analyzer 0 % (0-5); Neutrophil # 3.15 X10^3/uL (2.7-7.7); Neutrophil % 57.1 % (47-70); Platelet Count 248 K/mm3 (150-450); RBC Distribution Width CV 12.8 % (11.6-14.6); RBC Distribution Width SD 41.9 fl (35.1-43.9); Red Blood Count 4.46 M/mm3 (4.2-5.4); White Blood Count 5.5 K/mm3 (4.4-11.0)
[2022-01-07 07:55] LABS: AST(SGOT) 19 U/L (15-37); Alanine Aminotransfer ALT/SGPT 36 U/L (13-56); Albumin, Serum 3.6 g/dL (3.2-5.0); Alkaline Phosphatase 53 U/L (45-117); Anion Gap 6 (5-15); BUN 20 mg/dL (7-18); BUN/Creat Ratio 32.7 RATIO (10-20); Calcium,Total 9.1 mg/dL (8.5-10.1); Chloride 104 mmol/L (98-107); Cholesterol 154 mg/dL (200); Creatinine, Serum 0.61 mg/dL (0.55-1.02); EST Glomerular Filtration Rate 105 mL/min (>60); Est Glom Filt Rate - Afr Amer 128 mL/min (>60); Globulin 3.7 g/dL (2.2-4.2); Glucose 106 mg/dL (74-106); High Density Lipoprotein 51 mg/dL; Microalbumin,Random Urine 11.8 mg/L (NO RANGE EST.); Microalbumin:Creatinine Ratio 41.7 mg/g CRE (<30 mg/g CRE); Potassium 3.8 mmol/L (3.5-5.1); Protein, Total 7.3 g/dL (6.4-8.2); Sodium Level 136 mmol/L (136-145); Triglycerides 71 mg/dL; Very Low Density Lipoprotein 14 mg/dL (5-40)
[2022-01-07 08:06] LABS: Squamous Epithelial Cells - UA 0-5 SEEN /hpf (5-10)
[2022-01-09 08:42] LABS: Vitamin D,25 Hydroxy 30.8 ng/mL
== END | disposition home or self-care (01) ==
LOC: LAB 07:01
PROVIDERS: PCP Internal Medicine; Referring Provider Internal Medicine; Visit Provider Internal Medicine
DX: I10 Essential (primary) hypertension (principal); E55.9 Vitamin D deficiency, unspecified; K76.0 Fatty (change of) liver, not elsewhere classified
CPT/HCPCS: 36415; 80053; 80061; 81001; 82043; 82105; 82306; 82570; 85025

== ENCOUNTER → 2022-02-03 | Outpatient (CLI) | payer OTHER, SELFPAY | END | disposition home or self-care (01) | PROVIDERS: PCP Internal Medicine; Referring Provider Internal Medicine; Visit Provider Internal Medicine | DX: R00.0 Tachycardia, unspecified (principal); K76.0 Fatty (change of) liver, not elsewhere classified | CPT/HCPCS: 93225; 93226 ==

== ENCOUNTER → 2022-02-07 | Outpatient (CLI) | payer OTHER, SELFPAY ==
--- NOTE | 2022-02-07 07:33 | US_ITS ---
STUDY: ABDOMINAL ULTRASOUND - ELASTOGRAPHY REASON FOR VISIT: Female, 61 years old. Fatty infiltration the liver. TECHNIQUE: Liver stiffness measurements were obtained on a [employer] RS 85 ultrasound machine using a CA 1-7 probe following the SRU guidelines. 3 measurements were obtained using a 2-D-SWE method. The IQR/M was 23% suggesting a quality data set. TECHNICAL QUALITY: Adequate. COMPARISON: Comparison is made with prior study done earlier today. FINDINGS: Liver: Fatty infiltration of the liver. Median liver stiffness measured 8 kPa. US/Elastography Parenchyma/Organ IMPRESSION: Liver stiffness measures 8 kPa compatible with F2-F3 (Mild to moderate liver fibrosis) Metavir score. Electronically Signed: Jarrett Bey MD at 12:14 EDT ,
--- NOTE | 2022-02-07 07:33 | US_ITS ---
STUDY: ABDOMINAL ULTRASOUND - RIGHT UPPER QUADRANT REASON FOR VISIT: Female, 61 years old FATTY LIVER TECHNIQUE: Ultrasound evaluation of the right upper quadrant was performed with real-time and static coles-scale imaging. TECHNICAL QUALITY: Adequate. COMPARISON: Comparison is made with prior study of 11/20/2016. FINDINGS: Liver: The liver measures 13 cm. There is increased echogenicity consistent with fatty infiltration. The bile ducts are within normal limits. There is hepatic color flow. The direction of portal flow is hepatopetal. There is no demonstrated mass lesion. Gallbladder: Normal distended gallbladder. The gallbladder wall measures 1.3 mm. There is a negative sonographic Elias''s sign. There is no pericholecystic fluid. There are no gallstones. Common Bile Duct (C.B.D.): The common bile duct measures 3.3 mm. Pancreas: Normal size of the head, body and tail of the pancreas. There is normal echogenicity of the pancreas. There is no demonstrated pancreatic mass or cyst. Right Kidney: Normal size of the right kidney. The right kidney measures 11.4 cm x 4.5 cm x 4.7 cm. Normal renal cortex. The right cortex measures 1.4 cm. There is no demonstrated renal mass or cyst. There is no right hydronephrosis. US/Abdomen Limited IMPRESSION: Fatty infiltration of the liver. Electronically Signed: Jarrett Bey MD at 12:12 EDT ,
== END | disposition home or self-care (01) ==
LOC: US 07:32
PROVIDERS: PCP Internal Medicine; Referring Provider Internal Medicine; Visit Provider Internal Medicine
DX: K76.0 Fatty (change of) liver, not elsewhere classified (principal); R00.0 Tachycardia, unspecified
CPT/HCPCS: 76705; 76981

== ENCOUNTER 2022-03-09 09:45 | Emergency (ER) | payer OTHER, SELFPAY ==
[2022-03-09 09:49] VITALS: BP 166/82; PULSE 79; RESP 17; TEMP 36.3; O2SAT 99; BMI 31.5
--- NOTE | 2022-03-09 10:18 | EX.ED.DYSGE1 ---
HPI <CHAPO Manzano - Last Filed: 03/09/22 11:00> History of Present Illness Chief Complaint: Head Injury Narrative Narrative: 61-year-old female with history of hypertension, GERD presents to the emergency department after being struck in the face by a globe that she was getting off a shelf. Patient states that she was cleaning, try to get a heavy globe off of a shelf, and lean forward striking her in between the eyes. Patient states that she was dazed however denies any LOC. She is not currently on any anticoagulation medicine, she remembers the entire event. Patient was not drinking alcohol. She denies any neck pain. She does have some redness, edema between the eyes however no vision changes. PFSH <CHAPO Manzano - Last Filed: 03/09/22 11:00> PFSH Medical History Bicipital tendinitis, left shoulder BPPV (benign paroxysmal positional vertigo) Chronic back pain Elevated C-reactive protein (CRP) Essential (primary) hypertension Fatigue Fatty liver GERD (gastroesophageal reflux disease) Hemorrhoids Hyperglycemia IBS (irritable bowel syndrome) Muscle spasm of back Obesity (BMI 30-39.9) Pain in thoracic spine Renal artery aneurysm Tachycardia Uterine mass Vitamin D deficiency Home Medications pantoprazole 40 mg tablet,delayed release 40 mg PO DAILY 01/05/21 [History Last Taken Unknown] lisinopril 20 mg tablet 20 mg PO DAILY #90 tabs 02/27/22 [Rx Last Taken Unknown] Allergy/AdvReac Type Severity Reaction Status Date / Time codeine Allergy Rash Verified 03/09/22 09:46 Family History Father CAD (coronary artery disease) Diabetes Hypertension Kidney disease Cancer lung Surgical History H/O arthroscopic knee surgery H/O breast biopsy H/O oophorectomy History of colonoscopy History of endometrial ablation Social History Smoking Status: Never smoker alcohol intake: current substance use type: does not use caffeine: Yes ROS <CHAPO Manzano - Last Filed: 03/09/22 11:00> ROS ED ROS Narrative Constitutional: Negative for fever, chills, weight loss, weakness Eyes: Negative for vision loss, vision change, double vision ENT: Negative for any sore throat, ear pain, congestion Cardiovascular: Negative for any chest pain, tightness, palpitations Respiratory: Negative for any cough, sputum production, hemoptysis, dyspnea, dyspnea on exertion, orthopnea Gastrointestinal: Negative for any abdominal pain, nausea, vomiting, diarrhea, constipation, blood in stool, blood in vomit : Negative for any urinary frequency, dysuria, retention, blood in urine Muscle skeletal: Negative for any muscle joint pain, stiffness, myalgias, arthralgias, neck pain, back pain Neurological: Negative for any syncope, numbness or tingling, dizziness. Positive for headache Skin: Negative for any rashes, lumps, itching, lacerations. Positive for abrasions, edema Psychiatric: Negative for any depression, anxiety, stress, suicidal ideation, homicidal ideation Hematologic: Negative for any easy bruising, excessive bruising, easy bleeding Allergies: Negative for any eczema, hives, rash EXAM <CHAPO Manzano - Last Filed: 03/09/22 11:00> Physical Exam Narrative Exam Narrative: Vital signs reviewed. Patient is alert and orient x4, patient is acting appropriate. HEET: Head normocephalic atraumatic, TMs clear bilaterally. Posterior pharynx is clear, moist mucous membranes. Nares clear bilaterally. Pupils equal round reactive to light, negative for any hemotympanum, negative for any septal hematoma. Patient does have redness, small abrasion, slight edema in between the eyes. Negative for any nasal pain. Negative for any maxillary sinus pain. There is no laceration. EOMs are intact. Neck: Supple with no lymphadenopathy or tenderness. No signs of meningismus, negative jolt sign. Cardiac: Regular rate and rhythm no murmurs gallops or rubs, equal peripheral pulses bilaterally. Respiratory: Lungs clear to auscultation bilaterally. No chest tenderness. Abdomen: Soft, nontender, nondistended. No abdominal bruit or pulsatile masses. No hepatosplenomegaly Extremities: No peripheral edema, no signs of gross trauma or deformity. Active full range of motion of all extremities. Neuro: Cranial nerves II through XII intact, no focal neurological deficits. Skin: Clean dry and intact with no rash, purpura, petechiae, vesicles or pustules. Backs/flank: No CVA tenderness, no midline spinal tenderness, no deformity. Psych: Normal mood and affect. No SI, HI or acute psychosis. Const Vital Signs: 03/09/22 09:49 03/09/22 11:06 Temperature 97.3 F L 98.9 F Temperature Source Temporal Pulse Rate 79 66 Respiratory Rate 17 14 Blood Pressure 166/82 H 134/78 H Blood Pressure Mean 110 Pulse Ox 99 99 Oxygen Delivery Method Room Air Positive well nourished and well developed General Appearance ED: well developed <Dr. Hua Chanel MD - Last Filed: 03/09/22 12:00> Physical Exam Const Vital Signs: 03/09/22 09:49 03/09/22 11:06 Temperature 97.3 F L 98.9 F Temperature Source Temporal Pulse Rate 79 66 Respiratory Rate 17 14 Blood Pressure 166/82 H 134/78 H Blood Pressure Mean 110 Pulse Ox 99 99 Oxygen Delivery Method Room Air MDM <CHAPO Manzano - Last Filed: 03/09/22 11:00> [facility] Treatment and Re-Evaluation Narrative: Patient appears well, patient appears nontoxic, vital signs are stable. Patient presents to the emergency department after a head injury following a globe falling on her face. Patient's physical examination was grossly unremarkable, patient's exam yields no red flag signs, patient does not currently meet any criteria for any imaging. Patient instructed to ice, keep her head elevated. She was educated regarding hematoma, possible bruising. Patient is happy with the plan of care, she will take Tylenol, ibuprofen for home. She is instructed to return for any worsening pain, vision changes, syncope, nausea or vomiting. Patient is agreeable and will follow up outpatient. Stable for discharge <Dr. Hua Chanel MD - Last Filed: 03/09/22 12:00> [facility] Narrative Medical decision making narrative: I have personally performed a face to face assessment of the patient and have reviewed the JESÚS Note. I performed a substantive portion of the visit including all aspects of the following. My martell findings include: History is remarkable for a globe falling onto her nose. She presents because of abrupt swelling. Last tetanus 5 years ago. She had no loss of conscious. She not amnestic. She is not on an anticoagulant. She denies trouble breathing out of her nose. She denies change in voice. Denies neck pain. Denies paresthesia, anesthesia or motor weakness. Exam is soft tissue swelling with abrasion bridge of the nose. Head is normocephalic. No clinical planes of basal skull fracture. Ears normal. Nares patent. No septal deviation hematoma. No evidence of dental trauma. No cervical spine tenderness. C-spine cleared per Nexus criteria. GCS is 15 with a nonfocal neurologic exam Medical Decision Making patient has a contusion to the bridge of her nose with abrasion. Per the [facility] CT head rule imaging is not required. Plan is to discharge to home with appropriate home-going instructions Other additions or changes: None Discharge Plan Triage Chief Complaint: Head Injury ED Midlevel Provider: Fransisco Duran ED Provider: Hua Chanel Dx/Rx/DC Orders Clinical Impression: Contusion of face, Hematoma, Abrasion Instructions: After a Concussion, Black Eye Prescriptions: No Action pantoprazole 40 mg tablet,delayed release (DR/EC) 40 mg PO DAILY Label Comments: TAKE 1 TABLET BY MOUTH EVERY DAY lisinopril 20 mg tablet 20 mg PO DAILY Qty: 90 5RF Primary Care Provider: Lisa Yoder Referrals: Lisa Yoder DO [Primary Care Provider] - Activity Restrictions/Additional Instructions: Please ice, please use ibuprofen, Tylenol at home. Disposition Disposition: Home, Self Care Discharge Date/Time: 03/09/22 11:07
[2022-03-09 11:06] VITALS: BP 134/78; PULSE 66; RESP 14; TEMP 37.2; O2SAT 99
== END 2022-03-09 11:07 | disposition home or self-care (01) ==
PROVIDERS: Emergency Provider Emergency Medicine; PCP Internal Medicine; Visit Provider Emergency Medicine
DX: S00.31XA Abrasion of nose, initial encounter (principal); S00.83XA Contusion of other part of head, initial encounter; I10 Essential (primary) hypertension; Z79.899 Other long term (current) drug therapy; W22.8XXA Striking against or struck by other objects, initial encounter
CPT/HCPCS: 99281